=== PATIENT | male | born 1995 | race Caucasian/White ===

== ENCOUNTER 2024-03-10 21:11 | Emergency (ER) | payer MEDICAID ==
[~2024-03-10] VITALS: Ht 165.1 cm; Wt 77.1 kg
[2024-03-10 21:34] VITALS: BP_SYST 122; PULSE 93; RESP 18; TEMP 98.6; O2SAT 98
[2024-03-10] MEDS: KETOROLAC TROMETHAMINE 60 MG/2 ML VIAL IM ONE (23:35)
[2024-03-10] MEDS: HYDROcodone/ACETAMIN 5-325 MG TAB (NORCO/ VICODIN) PO ONE (23:36)
[2024-03-10] MEDS: LIDOCAINE 1% 10 MG/ML, 20 ML MDV INJ ONE (23:37)
[2024-03-10] MEDS ORDERED: CLIN-142 PO (23:52)
[2024-03-10] MEDS ORDERED: IBUP-1970 PO (23:52)
[2024-03-11 00:17] VITALS: BP_SYST 142; PULSE 80; RESP 18; TEMP 98.6; O2SAT 97
== END 2024-03-11 00:17 | disposition home or self-care (01) ==
LOC: SED 21:11
DX: L02.31 Cutaneous abscess of buttock (principal); Z88.0 Allergy status to penicillin; Z79.899 Other long term (current) drug therapy; Z79.2 Long term (current) use of antibiotics
CPT/HCPCS: 99283; 10060; 96372; J1885; J2001